=== PATIENT | male | born 1950 | race Hispanic/Latino ===

== ENCOUNTER → 2024-08-21 | Outpatient (REF) | payer MEDICARE ==
[~2024-08-21] MED LIST: IOPAMIDOL 370 MG/ML 100 ML INFUS..BTL INJ ONE; SODIUM CHLORIDE 0.9% 500ML 500 ML ONE
[2024-08-21 12:18] LABS: CREATININE, SERUM 1.65 mg/dL (0.72-1.25)
== END ==
LOC: CT 11:30
PROVIDERS: ATTEND Internal Medicine Cardiovascular Disease
DX: R06.02 Shortness of breath (principal); I65.21 Occlusion and stenosis of right carotid artery
CPT/HCPCS: 36415; 70496; 70498; 82565; 84520; 96360; J7040; Q9967